=== PATIENT | female | born 1965 | race Caucasian/White ===

== ENCOUNTER 2017-12-04 17:37 | Emergency (ER) | payer MEDICAID ==
[~2017-12-04] VITALS: Ht 157.5 cm; Wt 68.7 kg
[~2017-12-04 17:37] MED LIST: METF500T PO
[2017-12-04 17:48] VITALS: BP 111/53
--- NOTE | 2017-12-04 17:55 | NUR ---
AFTER PROVIDING URINE SAMPLE, PT AMBULATES TO BED, REPORT GIVEN TO MANUEL JOHNSON
[2017-12-04] MEDS ORDERED: NACL 0.9% 1,000 ML IV ONE (18:10)
[2017-12-04] MEDS ORDERED: METOCLOPRAMIDE 10 MG/2 ML INJ VIAL IVP ONE (18:10)
--- NOTE | 2017-12-04 18:10 | NUR ---
PT. CAME INTO THE ED C/O VOMITING AND DIAHRRHEA X 3 DAYS. PT. STATES " ON MONDAY I ATE A BURRITO AND EVER SINCE THEN I STARTED FEELING SICK AND STARTED VOMITING MONDAY NIGHT AND STARTED HAVING DIAHRRHEA TOO, NOW I JUST FEEL WEAK". PT. AAOX 4 , RR EVEN AND UNLABORED, PT. DENIES SOB, DENIES CP, PT. DENIES ANY PAIN AT THIS TIME. PT. SAYS SHE IS DIZZY, NO VISUAL CHANGES AT THIS TIME, PT. SAYS N/V/D X 3 DAYS. ER MD NOTIFIED. DAUGHTER AT BEDSIDE. WILL CONTINUE TO MONITOR. DENIES ANY ALLERGIES TO MED, AND HX OF DM ONLY.
[2017-12-04 18:38] LABS: BASOPHILS % (AUTO) 0.6 % (0.0-2.0); EOSINOPHILS % (AUTO) 0.8 % (0.0-4.0); HEMATOCRIT 38.9 % (36-48); HEMOGLOBIN 13.4 g/dL (12.0-16.0); LYMPHOCYTES # (AUTO) 1.1 K/uL (2.5-16.5); LYMPHOCYTES % (AUTO) 19.7 % (20.5-51.1); MEAN CORPUSCULAR HEMOGLOBIN 30 pg (27-31); MEAN CORPUSCULAR HGB CONC 34 g/dL (33-37); MEAN CORPUSCULAR VOLUME 87.3 fL (80-94); MONOCYTES # (AUTO) 0.5 K/uL (0.8-1.0); MONOCYTES % (AUTO) 8.1 % (1.7-9.3); NEUTROPHILS % (AUTO) 70.8 % (42.2-75.2); PLATELET COUNT (AUTO) 207 K/uL (140-450); RED BLOOD CELL COUNT(AUTO) 4.46 MIL/uL (4.20-5.40); RED CELL DISTRIBUTION WIDTH 12.3 % (11.6-13.7); WHITE BLOOD COUNT (AUTO) 5.6 K/uL (4.8-10.8)
[2017-12-04 18:45] LABS: ANION GAP 12.1 (8-16); CHLORIDE 97 mmol/L (98-107); GFR ARICAN-AMERICAN 75 mL/min (>90); GLUCOSE 327 mg/dL (74-106); POTASSIUM 4.1 mmol/L (3.5-5.1); SODIUM SERUM 132 mmol/L (136-145); UREA NITROGEN, BLOOD 10 mg/dL (7-18)
[2017-12-04 18:51] LABS: ALBUMIN 2.8 g/dL (3.4-5.0); ASPARTATE AMINOTRANSFERASE 13 U/L (15-37); LIPASE 126 U/L (73-393); TOTAL BILIRUBIN 0.4 mg/dL (0.0-1.0)
[2017-12-04 18:57] LABS: ACETONE, SERUM NEGATIVE (NEGATIVE)
--- NOTE | 2017-12-04 19:22 | NUR ---
Pt report given to MANUEL MASTERSON . Transfer of care at this time.
[2017-12-04 20:06] VITALS: BP 111/53
== END 2017-12-04 20:06 | disposition home or self-care (01) ==
LOC: MED 17:37
DX: R11.2 Nausea with vomiting, unspecified (principal); R19.7 Diarrhea, unspecified; E11.65 Type 2 diabetes mellitus with hyperglycemia; Z79.84 Long term (current) use of oral hypoglycemic drugs
CPT/HCPCS: 36415; 71045; 80053; 81002; 81025; 82009; 83690; 84484; 85025; 93005; 96361; 96374; 99285; J2765; J7030; Q0092

== ENCOUNTER 2018-09-03 03:28 | Emergency (ER) | payer MEDICAID ==
[~2018-09-03] VITALS: Ht 154.9 cm; Wt 65.0 kg
[2018-09-03 03:36] VITALS: BP 136/67
--- NOTE | 2018-09-03 03:46 | NUR ---
PT DENIES HITTING ANYTHING SHE PASSED OUT. PT FAMLY STATED SHE JUST FELL TO THE FLOOR. NO BRUISING OR REDNESS ASSESSED. ER MD MADE AWARE OF STATUS.
--- NOTE | 2018-09-03 03:47 | NUR ---
PT AMBULATED TO THE RESTROOM
--- NOTE | 2018-09-03 03:48 | NUR ---
PT AMBULATED TO BED #3
--- NOTE | 2018-09-03 04:07 | NUR ---
PATIENT PRESENTS TO ED WITH PT C/O SYNCOPE EPISODE WHEN SHE COUGHED. COUGH X 1 WEEK. WENT TO PRIMARY CARE AND WAS GIVEN MEDICATION FOR THE COUGH, PROMETHAZINE WITH PHENERGAN. NKA MEDICAL DM PT HAS SOME N/ BUT DENIED VOMITING AND DIARRHEA. NO COUGH WAS ASSSESED IN TRIAGE. DENIES N/V/D; SKIN IS PINK/WARM/DRY; AAOX4 WITH EVEN AND STEADY GAIT; LUNGS CLEAR BL; HR EVEN AND REGULAR; PT DENIES ANY FEVER, CP, SOB, OR COUGH AT THIS TIME; PATIENT STATES PAIN OF 0/10 AT THIS TIME; VSS; PATIENT POSITIONED FOR COMFORT; HOB ELEVATED; BEDRAILS UP X2; BED DOWN. ER MD MADE AWARE OF PT STATUS.
[2018-09-03 05:29] VITALS: BP 144/82
--- NOTE | 2018-09-03 05:29 | NUR ---
Patient discharged with v/s stable. Written and verbal after care instructions given and explained. Patient alert, oriented and verbalized understanding of instructions. Ambulatory with steady gait. All questions addressed prior to discharge. ID band removed. Patient advised to follow up with PMD. Rx of CIPRO AND NORCO AND PREDNISONE. given. Patient educated on indication of medication including possible reaction and side effects. Opportunity to ask questions provided and answered.
== END 2018-09-03 05:29 | disposition home or self-care (01) ==
LOC: MED 03:28
DX: R55 Syncope and collapse (principal); R05 Cough; N39.0 Urinary tract infection, site not specified; M25.569 Pain in unspecified knee; E11.9 Type 2 diabetes mellitus without complications; I10 Essential (primary) hypertension; Z79.84 Long term (current) use of oral hypoglycemic drugs
CPT/HCPCS: 81002; 81025; 99283

== ENCOUNTER 2019-04-10 07:31 | Emergency (ER) | payer MEDICAID ==
[~2019-04-10] VITALS: Ht 160 cm; Wt 81.6 kg
[2019-04-10 07:32] VITALS: BP 164/83
[2019-04-10] MEDS ORDERED: NACL 0.9% 1,000 ML IV ONE (07:55)
[2019-04-10] MEDS ORDERED: hydrALAZINE 20 MG/ML VIAL IVP ONE (07:55)
[2019-04-10] MEDS ORDERED: ONDANSETRON 4 MG/2 ML VIAL IVP ONE (07:55)
[2019-04-10] MEDS ORDERED: INSULIN REGULAR, HUMAN 100 UNIT/ML VIAL SUBQ ONE (07:55)
[2019-04-10 08:47] LABS: BASOPHILS % (AUTO) 0.5 % (0.0-2.0); EOSINOPHILS # (AUTO) 0.1 K/uL (0-0.4); EOSINOPHILS % (AUTO) 1.1 % (0.0-4.0); HEMATOCRIT 36.5 % (36-48); HEMOGLOBIN 12.5 g/dL (12.0-16.0); LYMPHOCYTES # (AUTO) 1.6 K/uL (2.5-16.5); LYMPHOCYTES % (AUTO) 20.8 % (20.5-51.1); MEAN CORPUSCULAR HEMOGLOBIN 31 pg (27-31); MEAN CORPUSCULAR HGB CONC 34 g/dL (33-37); MEAN CORPUSCULAR VOLUME 89.2 fL (80-94); MONOCYTES # (AUTO) 0.5 K/uL (0.8-1.0); MONOCYTES % (AUTO) 6.3 % (1.7-9.3); NEUTROPHILS # (AUTO) 5.6 K/uL (1.8-7.7); NEUTROPHILS % (AUTO) 71.3 % (42.2-75.2); PLATELET COUNT (AUTO) 267 K/uL (140-450); RED CELL DISTRIBUTION WIDTH 12.4 % (11.6-13.7); WHITE BLOOD COUNT (AUTO) 7.9 K/uL (4.8-10.8)
[2019-04-10 09:52] LABS: POTASSIUM 4.4 mmol/L (3.5-5.1)
[2019-04-10 09:53] LABS: ANION GAP 14.4 (8-16)
[2019-04-10 09:54] LABS: TOTAL BILIRUBIN 0.4 mg/dL (0.0-1.0)
[2019-04-10 09:55] LABS: ALBUMIN 3.2 g/dL (3.4-5.0)
[2019-04-10 10:20] VITALS: BP 133/79
== END 2019-04-10 10:19 | disposition home or self-care (01) ==
LOC: MED 07:31
DX: R11.2 Nausea with vomiting, unspecified (principal); E11.65 Type 2 diabetes mellitus with hyperglycemia; I10 Essential (primary) hypertension; Z79.84 Long term (current) use of oral hypoglycemic drugs
CPT/HCPCS: 36415; 80053; 85025; 96361; 96372; 96374; 96375; 99283; J0360; J1815; J2405; J7030

== ENCOUNTER 2019-07-19 09:55 | Emergency (ER) | payer MEDICAID ==
[~2019-07-19] VITALS: Ht 152.4 cm; Wt 67.6 kg
[2019-07-19 10:00] VITALS: BP 137/67
--- NOTE | 2019-07-19 10:03 | NUR ---
PT AMBULATED TO ED BED 03
--- NOTE | 2019-07-19 10:07 | NUR ---
54/F BIB DAUGHTER C/O NAUSEA , DIZZINESS AND GENERALIZED WEAKNESS X 2 DAYS. NORMAL BM YESTERDAY. PMH; DM, HIGH CHOLESTEROL. PATIENT STATES PAIN OF 0/10 AT THIS TIME. PATIENT POSITIONED FOR COMFORT; HOB ELEVATED; BEDRAILS UP X1; BED DOWN. ER MD MADE AWARE OF PT STATUS.
[2019-07-19] MEDS ORDERED: NACL 0.9% 500 ML IV ONE (10:25)
[2019-07-19] MEDS ORDERED: ONDANSETRON 4 MG/2 ML VIAL IVP ONE (10:25)
--- NOTE | 2019-07-19 10:41 | NUR ---
ekg at bedside.
[2019-07-19 11:12] LABS: BASOPHILS # (AUTO) 0.1 K/uL (0.00-0.22); BASOPHILS % (AUTO) 0.8 % (0.0-2.0); EOSINOPHILS # (AUTO) 0.1 K/uL (0-0.4); EOSINOPHILS % (AUTO) 1.8 % (0.0-4.0); HEMATOCRIT 38.1 % (36-48); LYMPHOCYTES # (AUTO) 2.1 K/uL (2.5-16.5); LYMPHOCYTES % (AUTO) 31.3 % (20.5-51.1); MEAN CORPUSCULAR HEMOGLOBIN 31 pg (27-31); MEAN CORPUSCULAR HGB CONC 34 g/dL (33-37); MEAN CORPUSCULAR VOLUME 89.8 fL (80-94); MONOCYTES # (AUTO) 0.4 K/uL (0.8-1.0); MONOCYTES % (AUTO) 5.8 % (1.7-9.3); NEUTROPHILS # (AUTO) 4.1 K/uL (1.8-7.7); NEUTROPHILS % (AUTO) 60.3 % (42.2-75.2); PLATELET COUNT (AUTO) 279 K/uL (140-450); RED BLOOD CELL COUNT(AUTO) 4.24 MIL/uL (4.20-5.40); RED CELL DISTRIBUTION WIDTH 12.4 % (11.6-13.7); WHITE BLOOD COUNT (AUTO) 6.8 K/uL (4.8-10.8)
[2019-07-19 12:05] LABS: ANION GAP 12.1 (8-16); CARBON DIOXIDE 28.3 mmol/L (21-32); CREATININE 0.9 mg/dL (0.6-1.3); POTASSIUM 4.4 mmol/L (3.5-5.1); TOTAL BILIRUBIN 0.3 mg/dL (0.0-1.0)
[2019-07-19 12:06] LABS: ALBUMIN 3.4 g/dL (3.4-5.0)
[2019-07-19 12:27] VITALS: BP 174/96
--- NOTE | 2019-07-19 12:27 | NUR ---
Patient discharged with v/s stable. Written and verbal after care instructions given and explained. Patient alert, oriented and verbalized understanding of instructions. Ambulatory with steady gait. All questions addressed prior to discharge. ID band removed. Patient advised to follow up with PMD. Rx of zofran odt given. Patient educated on indication of medication including possible reaction and side effects. Opportunity to ask questions provided and answered.
== END 2019-07-19 12:27 | disposition home or self-care (01) ==
LOC: MED 09:55
DX: E11.43 Type 2 diabetes mellitus with diabetic autonomic (poly)neuropathy (principal); K31.84 Gastroparesis; I10 Essential (primary) hypertension; E78.00 Pure hypercholesterolemia, unspecified; Z79.4 Long term (current) use of insulin; Z79.84 Long term (current) use of oral hypoglycemic drugs
CPT/HCPCS: 36415; 80053; 83690; 84484; 85025; 93005; 96374; 99284; J2405; J7030

== ENCOUNTER 2020-01-19 20:44 | Emergency (ER) | payer MEDICAID ==
[~2020-01-19] VITALS: Ht 152.4 cm; Wt 68.5 kg
[2020-01-19 21:12] VITALS: BP 178/88
--- NOTE | 2020-01-19 21:18 | NUR ---
AMBULATED TO ER BED 4
--- NOTE | 2020-01-19 21:21 | NUR ---
54Y F BIB SELF FOR C/C OF 8/10 LEFT ECHEVERRIA AND PINKY TOE PAIN X1 WEEK. PT STATES SHE HIT HER LEG AND FOOT ON SOMETHING AND HER PAIN HAS INCREASED SINCE. PINKY TOE IS EDEMATOUS WITH A SMALL SKIN TEAR. NO BRUSING NOTED. DENIES TAKING ANY OTC MEDS FOR PAIN. BED LOCKED AND IN LOWEST POSITION. MED HX: DM2 RX: METFORMIN NKA
--- NOTE | 2020-01-19 21:46 | NUR ---
ERMD AT BEDSIDE
[2020-01-19] MEDS ORDERED: ACETAMINOPHEN EXTRA STRENGTH 500 MG TAB PO ONE (21:50)
[2020-01-19] MEDS ORDERED: LIDOCAINE/EPI 1% 1:100000 20 ML VIAL INJ ONE (21:55)
[2020-01-19] MEDS ORDERED: ACETAMINOPHEN 325 MG TAB PO ONE (22:05)
[2020-01-19] MEDS ORDERED: BACITRACIN OINT 500 UNITS/GM PKT TP ONE (23:24)
--- NOTE | 2020-01-19 23:25 | NUR ---
PULLED BACITRACIN FROM PYXIS PER ERMNila VERBAL ORDER
[2020-01-19 23:33] VITALS: BP 172/86
[2020-01-21] MEDS ORDERED: METF500T PO (19:08)
[2020-01-21] MEDS ORDERED: LISI-420 PO (22:51)
[2020-01-21] MEDS ORDERED: OMEP20TC12 PO (22:51)
[2020-01-28] MEDS ORDERED: METF500T PO (13:44)
[2020-01-28] MEDS ORDERED: GLIP5TAB4 PO (13:44)
[2020-01-28] MEDS ORDERED: [UNRECOGNIZED DRUG - OTHER] IV (13:47)
[2020-01-28] MEDS ORDERED: MERO1VIA15 IV (13:47)
== END 2020-01-19 23:33 | disposition home or self-care (01) ==
LOC: MED 20:44
DX: S99.922A Unspecified injury of left foot, initial encounter (principal); L02.612 Cutaneous abscess of left foot; E11.9 Type 2 diabetes mellitus without complications; I10 Essential (primary) hypertension; Z79.899 Other long term (current) drug therapy; W22.01XA Walked into wall, initial encounter; Y93.89 Activity, other specified; Y92.89 Other specified places as the place of occurrence of the external cause; Y99.8 Other external cause status
CPT/HCPCS: 73590; 73660; 99284; J2001

== ENCOUNTER 2021-10-10 20:38 | Emergency (ER) | payer MEDICAID ==
[~2021-10-10] VITALS: Ht 157.5 cm; Wt 81.6 kg
[~2021-10-10 20:38] MED LIST changes: +GLIP5TAB14 PO; +GLU500 PO; +LISI-487 PO; +MERO1VIA15 IV; +OMEP-278 PO; +TYLENOL; +[UNRECOGNIZED DRUG - OTHER] IV
[2021-10-10 20:45] VITALS: BP 111/82
--- NOTE | 2021-10-10 20:48 | NUR ---
to lobby a/w bed ambulatory
--- NOTE | 2021-10-10 21:10 | NUR ---
seen and examined by MARAL
--- NOTE | 2021-10-10 22:00 | NUR ---
PT AMBULATED TO BED #1
--- NOTE | 2021-10-10 22:03 | NUR ---
56 YO/F BIB SELF W C/O NAUSEA IN THE MORNING THAT RESOLVED BUT NOT HAS ALOT OF CHILLS AND COUGH. PT DENIES ANY EPISODES OF VOMIT. DENIES ANY SOB, DIZZINESS, FEVERS, N/V/D/C OR ANY PAIN. PT SITTING IN BED LOCKED IN LOWEST POSITION W X1 SIDERAIL UP . BREATHING EVEN AND UNLABORED. PMH: DIABETES, HIGH CHOL, HTN ALLERGIES: DENIES
--- NOTE | 2021-10-10 22:12 | NUR ---
PT AMBULATED TO BATHROOM W STEADY GAIT.
[2021-10-10 22:30] LABS: BASOPHILS # (AUTO) 0.1 K/uL (0.00-0.22); BASOPHILS % (AUTO) 0.8 % (0.0-2.0); EOSINOPHILS # (AUTO) 0.2 K/uL (0-0.4); EOSINOPHILS % (AUTO) 2.6 % (0.0-4.0); HEMATOCRIT 30.4 % (36-48); HEMOGLOBIN 10.4 g/dL (12.0-16.0); LYMPHOCYTES # (AUTO) 1.3 K/uL (2.5-16.5); LYMPHOCYTES % (AUTO) 14.5 % (20.5-51.1); MEAN CORPUSCULAR HEMOGLOBIN 29 pg (27-31); MEAN CORPUSCULAR HGB CONC 34 g/dL (33-37); MEAN CORPUSCULAR VOLUME 85.3 fL (80-94); MONOCYTES # (AUTO) 0.9 K/uL (0.8-1.0); MONOCYTES % (AUTO) 9.6 % (1.7-9.3); NEUTROPHILS # (AUTO) 6.5 K/uL (1.8-7.7); NEUTROPHILS % (AUTO) 72.5 % (42.2-75.2); PLATELET COUNT (AUTO) 361 K/uL (140-450); RED BLOOD CELL COUNT(AUTO) 3.56 MIL/uL (4.20-5.40); RED CELL DISTRIBUTION WIDTH 12.5 % (11.6-13.7); WHITE BLOOD COUNT (AUTO) 8.9 K/uL (4.8-10.8)
[2021-10-10 22:33] LABS: APPEARANCE,URINE CLEAR (CLEAR); BILIRUBIN,URINE NEGATIVE (NEGATIVE); BLOOD, URINE TRACE-I (NEGATIVE); COLOR,URINE YELLOW (YELLOW); LEUKOCYTE ESTERASE ,URINE 2+ (NEGATIVE); NITRITE, URINE POSITIVE (NEGATIVE); PH,URINE 7.5 (5.0-9.0); UGLUCOSE 2+ (NEGATIVE)
[2021-10-10 22:46] LABS: ALBUMIN 2.6 g/dL (3.4-5.0); ANION GAP 9.1 (8-16); CREATININE 1.4 mg/dL (0.6-1.3); POTASSIUM 4.1 mmol/L (3.5-5.1); TOTAL BILIRUBIN 0.2 mg/dL (0.0-1.0)
[2021-10-10 22:47] LABS: RBC,URINE 0-5 /HPF (0-5); WBC,URINE 16-25 (MOD) /HPF (0-5)
--- NOTE | 2021-10-10 23:41 | NUR ---
PT LAYING IN BED IN R LATERAL POSIITON. PT DENIES ANY PAIN, NAUSEA OR OTHER SYMPTOMS. PT REPORTS CHILLS HAVE RESOLVED. BREATHING EVEN AND UNLABORED. WILL CONTINUE TO MONITOR.
[2021-10-11] MEDS ORDERED: ONDA-188 PO (00:44)
[2021-10-11] MEDS ORDERED: NITR100C7 PO (00:44)
[2021-10-11 01:00] VITALS: BP 119/53
--- NOTE | 2021-10-11 01:00 | NUR ---
Patient discharged with v/s stable. Written and verbal after care instructions given and explained. Patient alert, oriented and verbalized understanding of instructions. Ambulatory with steady gait. All questions addressed prior to discharge. ID band removed. Patient advised to follow up with PMD. Rx of ZOFRAN, MACROBID given. Patient educated on indication of medication including possible reaction and side effects. Opportunity to ask questions provided and answered.
== END 2021-10-11 01:00 | disposition home or self-care (01) ==
LOC: MED 20:38
DX: N39.0 Urinary tract infection, site not specified (principal); R11.0 Nausea; E11.9 Type 2 diabetes mellitus without complications; I10 Essential (primary) hypertension; Z79.899 Other long term (current) drug therapy; Z98.890 Other specified postprocedural states; Z79.84 Long term (current) use of oral hypoglycemic drugs
CPT/HCPCS: 36415; 80053; 81001; 83690; 85025; 87086; 99283

== ENCOUNTER 2022-04-16 09:03 | Inpatient (IN) | payer MEDICAID ==
[~2022-04-16] VITALS: Ht 160 cm; Wt 66.2 kg
[~2022-04-16 09:03] MED LIST changes: +METF-346 PO; -METF500T PO; +NITR100C7 PO; +ONDA-188 PO
[2022-04-16 09:14] VITALS: BP 119/64
--- NOTE | 2022-04-16 09:22 | NUR ---
PT AMB TO BED 12.
[2022-04-16] MEDS ORDERED: NACL 0.9% 1,000 ML IV ONE (10:00)
[2022-04-16] MEDS ORDERED: ONDANSETRON 4 MG/2 ML VIAL IVP ONE (10:00)
--- NOTE | 2022-04-16 10:12 | NUR ---
PT C/O ABDOMINAL AND CHEST PAIN WITH N/V 5 DAYS. IV INSERTED TO RIGHT AC #20GUAGE MEDICATED PER ORDER.
[2022-04-16 11:13] LABS: BASOPHILS % (AUTO) 0.4 % (0.0-2.0); EOSINOPHILS % (AUTO) 0.3 % (0.0-4.0); HEMATOCRIT 30.3 % (36-48); HEMOGLOBIN 10.4 g/dL (12.0-16.0); LYMPHOCYTES % (AUTO) 9.1 % (20.5-51.1); MEAN CORPUSCULAR HEMOGLOBIN 29 pg (27-31); MEAN CORPUSCULAR HGB CONC 34 g/dL (33-37); MEAN CORPUSCULAR VOLUME 85.7 fL (80-94); MONOCYTES # (AUTO) 0.9 K/uL (0.8-1.0); MONOCYTES % (AUTO) 8.4 % (1.7-9.3); NEUTROPHILS # (AUTO) 8.6 K/uL (1.8-7.7); NEUTROPHILS % (AUTO) 81.8 % (42.2-75.2); PLATELET COUNT (AUTO) 340 K/uL (140-450); RED BLOOD CELL COUNT(AUTO) 3.53 MIL/uL (4.20-5.40); RED CELL DISTRIBUTION WIDTH 12.4 % (11.6-13.7); WHITE BLOOD COUNT (AUTO) 10.6 K/uL (4.8-10.8)
[2022-04-16 11:18] LABS: ALBUMIN 2.3 g/dL (3.4-5.0); ANION GAP 12.8 (8-16); CARBON DIOXIDE 24.8 mmol/L (21-32); CREATININE 1.4 mg/dL (0.6-1.3); POTASSIUM 4.6 mmol/L (3.5-5.1); TOTAL BILIRUBIN 0.3 mg/dL (0.0-1.0)
[2022-04-16] MEDS ORDERED: NACL 0.9% 500 ML IV ONE (13:35)
[2022-04-16] MEDS ORDERED: ACETAMINOPHEN 325 MG TAB PO ONE (13:35)
--- NOTE | 2022-04-16 13:52 | NUR ---
taken to ct via maggi
[2022-04-16 15:18] LABS: APPEARANCE,URINE CLEAR (CLEAR); BILIRUBIN,URINE NEGATIVE (NEGATIVE); BLOOD, URINE 2+ (NEGATIVE); COLOR,URINE YELLOW (YELLOW); LEUKOCYTE ESTERASE ,URINE 2+ (NEGATIVE); NITRITE, URINE NEGATIVE (NEGATIVE); UGLUCOSE TRACE (NEGATIVE)
[2022-04-16 15:52] LABS: WBC,URINE 16-25 (MOD) /HPF (0-5); YEAST,URINE None Seen /HPF (None Seen)
[2022-04-16 15:53] LABS: TRICHOMONAS,URINE None Seen /HPF (None Seen)
[2022-04-16] MEDS ORDERED: cefTRIAXone 2,000 MG in DEXTROSE 5% 100 ML IV ONE (16:00)
[2022-04-16] MEDS ORDERED: cefTRIAXone 2,000 MG VIAL ONE (16:13)
[2022-04-16] MEDS ORDERED: LORazepam 2 MG/ML VIAL IVP PRN (17:50)
[2022-04-16] MEDS ORDERED: POTASSIUM CHLORIDE 10 MEQ TABER PO PRN (17:50)
[2022-04-16] MEDS ORDERED: DOCUSATE SODIUM 100 MG GELCAP PO PRN (17:50)
[2022-04-16] MEDS ORDERED: DEXTROSE 50% 50 ML SYR IVP PRN (17:50)
[2022-04-16] MEDS ORDERED: ZOLPIDEM 10 MG TAB PO PRN (17:50)
[2022-04-16] MEDS ORDERED: MORPHINE SULFATE 2 MG/ML SYR IVP PRN (17:50)
[2022-04-16] MEDS ORDERED: MAG SULF 2000 MG/WATER PREMIX 50 ML IV PRN (17:50)
[2022-04-16] MEDS ORDERED: ACETAMINOPHEN 325 MG TAB PO PRN (17:50)
--- NOTE | 2022-04-16 17:50 | NUR ---
MOVED TO ER BED 4
[2022-04-16] MEDS: NACL 0.9% 1,000 ML IV SCH (18:06)
--- NOTE | 2022-04-16 20:00 | NUR ---
ASSUMED PT CARE AT THIS TIME. PT A&O X4 AND IS POLISH SPEAKING. PT IS AMBULATORY. BREATHING EVEN AND UNLABORED. SR TO BEDSIDE MONITOR. PERIPHERAL IV ACCESS TO RIGHT HAND WITH NS INFUSING. NO C/O AT THIS TIME.
[2022-04-16] MEDS: BLOOD GLUCOSE MONITORING 1 DEV DEV FS SCH (21:33)
--- NOTE | 2022-04-16 22:30 | NUR ---
ASSISTED PT TO RESTROOM TO URINATE.
--- NOTE | 2022-04-17 00:30 | NUR ---
PT RESTING. DENIES PAIN.
[2022-04-17] MEDS: NACL 0.9% 1,000 ML IV SCH ×2 (03:50→14:59)
--- NOTE | 2022-04-17 07:23 | NUR ---
REPORT GIVEN TO AM SHIFT MANUEL SANCHEZ.
--- NOTE | 2022-04-17 07:28 | NUR ---
Report recieved from MANUEL Arias for transfer of care.
--- NOTE | 2022-04-17 08:46 | NUR ---
Patient was offered breakfast tray, patient is sitting up eating breakfast.
[2022-04-17] MEDS: BLOOD GLUCOSE MONITORING 1 DEV DEV FS SCH ×4 (08:55→21:02)
[2022-04-17 08:56] LABS: ANION GAP 11.2 (8-16); CARBON DIOXIDE 26.4 mmol/L (21-32); CREATININE 1.2 mg/dL (0.6-1.3); POTASSIUM 4.6 mmol/L (3.5-5.1)
[2022-04-17 09:06] LABS: BASOPHILS % (AUTO) 0.4 % (0.0-2.0); EOSINOPHILS % (AUTO) 0.4 % (0.0-4.0); HEMATOCRIT 28.7 % (36-48); HEMOGLOBIN 9.8 g/dL (12.0-16.0); LYMPHOCYTES # (AUTO) 0.7 K/uL (2.5-16.5); LYMPHOCYTES % (AUTO) 9.2 % (20.5-51.1); MEAN CORPUSCULAR HEMOGLOBIN 29 pg (27-31); MEAN CORPUSCULAR HGB CONC 34 g/dL (33-37); MEAN CORPUSCULAR VOLUME 85.6 fL (80-94); MONOCYTES # (AUTO) 0.7 K/uL (0.8-1.0); MONOCYTES % (AUTO) 8.4 % (1.7-9.3); NEUTROPHILS # (AUTO) 6.5 K/uL (1.8-7.7); NEUTROPHILS % (AUTO) 81.6 % (42.2-75.2); PLATELET COUNT (AUTO) 361 K/uL (140-450); RED BLOOD CELL COUNT(AUTO) 3.36 MIL/uL (4.20-5.40); RED CELL DISTRIBUTION WIDTH 12.5 % (11.6-13.7)
[2022-04-17] MEDS ORDERED: cefTRIAXone 1,000 MG VIAL ONE (09:33)
[2022-04-17] MEDS: ONDANSETRON 4 MG/2 ML VIAL IVP PRN (10:10)
--- NOTE | 2022-04-17 10:48 | NUR ---
Patient is resting on bed, respirations even and unlabored. All needs met by staff.
--- NOTE | 2022-04-17 12:05 | NUR ---
Patient was offered her lunch tray. Patient was sitting up eating lunch.
[2022-04-17] MEDS: INSULIN LISPRO SLIDING SCALE 100 UNITS/ML VIAL SUBQ PRN ×3 (12:09→21:09)
--- NOTE | 2022-04-17 14:28 | NUR ---
Patient is sitting in bed, respirations even and unlabored. Patient is using her cellphone. All needs meet by staff.
--- NOTE | 2022-04-17 16:15 | NUR ---
Patient is alert and verbally responsive. Patient is laying in bed, respirations even and unlabored. All needs met by staff.
--- NOTE | 2022-04-17 18:20 | NUR ---
Patient was offered her dinner tray.
--- NOTE | 2022-04-17 18:24 | NUR ---
Patient ambulated to restroom with cane.
--- NOTE | 2022-04-17 19:18 | NUR ---
Report given to AGAPITO Miguel for transfer of care.
--- NOTE | 2022-04-17 21:49 | NUR ---
57YR OLD FEMALE C/O CP AND ABD PAIN. PT IS A MEDSURG HOLD ADMISSION. DX OF PYELONEPHRITIS. PT STATES ONLY PAIN WHEN WALKING OR ANY OTHER MOVEMENT . ON BEDSIDE ETL TESTER. PT IS A&OX4 KITTITIAN SPEAKING ONLY. GAIT STEADY, USES A CANE. RESP EVEN AND UNLABORED. SKIN WARM DRY AND INTACT. HOB ELEVATED BED AT LOWEST POSITION. NKDA DM
--- NOTE | 2022-04-17 23:14 | NUR ---
PT RESTING RESP EVEN AND UNLABORED. HAS BEEN AMBULATORY TO BATHROOM WITH ASSIST. PENDING BED STATUS FOR [facility].
[2022-04-18] MEDS: NACL 0.9% 1,000 ML IV SCH ×3 (00:12→16:53)
--- NOTE | 2022-04-18 00:51 | NUR ---
Assisted patient to restroom.
--- NOTE | 2022-04-18 01:54 | NUR ---
PT ASLEEP RESP EVEN AND UNLABORED. HOB ELEVATED SIDE RAILS UPX1. 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 BED AT LOWEST POSITION.
[2022-04-18 05:33] LABS: BASOPHILS % (AUTO) 0.5 % (0.0-2.0); EOSINOPHILS # (AUTO) 0.1 K/uL (0-0.4); HEMATOCRIT 27.9 % (36-48); HEMOGLOBIN 9.5 g/dL (12.0-16.0); LYMPHOCYTES % (AUTO) 12.9 % (20.5-51.1); MEAN CORPUSCULAR HEMOGLOBIN 29 pg (27-31); MEAN CORPUSCULAR HGB CONC 34 g/dL (33-37); MONOCYTES # (AUTO) 0.8 K/uL (0.8-1.0); MONOCYTES % (AUTO) 10.1 % (1.7-9.3); NEUTROPHILS # (AUTO) 5.7 K/uL (1.8-7.7); NEUTROPHILS % (AUTO) 75.5 % (42.2-75.2); PLATELET COUNT (AUTO) 346 K/uL (140-450); RED BLOOD CELL COUNT(AUTO) 3.24 MIL/uL (4.20-5.40); RED CELL DISTRIBUTION WIDTH 12.8 % (11.6-13.7); WHITE BLOOD COUNT (AUTO) 7.6 K/uL (4.8-10.8)
[2022-04-18 05:50] LABS: ANION GAP 13.1 (8-16); CARBON DIOXIDE 24.5 mmol/L (21-32); CREATININE 1.3 mg/dL (0.6-1.3); POTASSIUM 4.6 mmol/L (3.5-5.1)
--- NOTE | 2022-04-18 07:22 | NUR ---
REPORT GIVEN TO FINA ALTMAN. TRANSFER OF CARE AT THIS TIME
--- NOTE | 2022-04-18 07:23 | NUR ---
REPORT RECEIVED FROM CRAIG ALTMAN. ASSUMED CARE AT THIS TIME
--- NOTE | 2022-04-18 07:30 | NUR ---
pt at rest w/ eyes closed. respirations even and unlabored. c/o mild nausea, denies chest pain at this time.
[2022-04-18] MEDS: BLOOD GLUCOSE MONITORING 1 DEV DEV FS SCH ×4 (07:45→21:50)
[2022-04-18] MEDS: INSULIN LISPRO SLIDING SCALE 100 UNITS/ML VIAL SUBQ PRN ×4 (07:46→21:59)
[2022-04-18] MEDS: ONDANSETRON 4 MG/2 ML VIAL IVP PRN (07:48)
--- NOTE | 2022-04-18 07:53 | NUR ---
Patient will be admitted to care of MD EPPERSON . Admited to [facility]. Will go to room 118. Belongings list completed. Report to BOOGIE JACKSON.
--- NOTE | 2022-04-18 07:54 | NUR ---
Chart checked and completed. The patient's care was reviewed and supervised by Nadia Patiño RN.
--- NOTE | 2022-04-18 10:00 | NUR ---
RECEIVED FROM ED ADMITTE ASSESSMENT COMPLETE PLAN OF CARE REVIEWED INTERPRETOR [phone] USED FOR TRANSLATION NO COMPLAINTS OF PAIN AT THIS TIME ORIENTED TO ROOM AND PLAN OF CARE
--- NOTE | 2022-04-18 11:05 | NUR ---
PATIENT HAS BEEN SCREENED AND CATEGORIZED MODERATE NUTRITION RISK. PATIENT WILL BE SEEN WITHIN 3-5 DAYS OF ADMISSION. 04/16/22-04/21/[address] REVIEWED BY K[address]IS TOL[address] RD
[2022-04-18 12:00] VITALS: BP 125/82
--- NOTE | 2022-04-18 13:30 | NUR ---
DC PLANNING PATIENT IS PRIMARILY L[place] SPEAKING, THEREFORE NEWS CLERK SERVICE WAS USED, NEWS CLERK ID [id number]. SW MET WITH PATIENT AT BEDSIDE TO COMPLETE ASSESSMENT. PATIENT REPORTS RESIDING IN A SINGLE STORY HOME WITH HER FAMILY AT THE ADDRESS LISTED ON FILE. PATIENT IDENTIFIED FLORIN GOMEZ, DAUGHTER, AND LOY QUESADA, PARTNER, EMERGENCY CONTACTS. PATIENT DENIED HAVING AD IN PLACE AND DECLINED AD OFFERED BY SW. PATIENT REPORTS MEETING WITH PCP, NEEDED, LAST VISIT; 1-2 MONTHS AGO. PATIENT REPORTS BEING NON COMPLIANT MEDICATION AND REPORTS THAT SHE OFTEN BREAKS DOWN OR DECREASES THE AMOUNT PRESCRIBED SHE FEELS ILL IF TAKING THE PRESCRIBED DOSE. SW ENCOURAGED PATIENT TO SPEAK TO PCP. PATIENT ACKNOWLEDGED AND AGREED. 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 PATIENT REPORTS RECEIVING MEDICATION FROM [facility] [address] IN [place], WHEN NEEDED. PATIENT REPORTS BEING AMBULATORY WITH DME ASSISTANCE; CANE, GLUCOMETER. PATIENT COMPLETES ADL'S INDEPENDENTLY. PATIENT REPORTS HX OF DIABETES AND REPORTS THAT DIABETES IS WELL MANAGED. PATIENT DENIED MH/SA HX. PATIENT DEPORTS DC PLAN IS TO RETURN HOME WITH FAMILY PROVIDING TRANSPORTATION WHEN MEDICALLY STABLE. SW INQUIRED ON RESOURCES NEEDED, PATIENT DECLINED. PT DENIES HX OF DIALYSIS, HOME HEALTH, SNF PLACEMENT.
[2022-04-18 16:00] VITALS: BP 133/79
--- NOTE | 2022-04-18 17:30 | NUR ---
PT POSITIVE FOR MDRO ECOLI ESBL OF URINE MD EPPERSON MADE AWARE WITH NEW ORDER TO START MERAM 1GM Q 8 HOUR DC ROCEPHIN AND CONSULT DR PEÑA NOTIFIED VIA TEXT NO DISTRESS NOTED PT PLACED IN ISOLATION
--- NOTE | 2022-04-18 19:35 | NUR ---
RECEIVED ENDORSEMENT FROM DAY SHIFT NURSE FOR CONTINUITY OF CARE. PT IS ON BED ASLEEP. IV SALINE LOCK ON RIGHT HAND INTACT AND PATENT, INFUSING NORMAL SALINE AT 100ML/HR. NO SIGN/SYMPTOM OF INFECTION ON IV SITE. CONTINUE MONITORING.
[2022-04-18 20:00] VITALS: BP 133/79
[2022-04-18] MEDS: MEROPENEM 1,000 MG in NACL 0.9% 50 ML IV SCH (21:41)
--- NOTE | 2022-04-18 21:50 | NUR ---
BLOOD SUGAR CHECK = 247.
--- NOTE | 2022-04-18 21:50 | NUR ---
ADMINISTERED 4 HUMOLOG INSULIN FOR BLOOD SUGAR 247, PER SLIDING SCALE.
[2022-04-19 04:00] VITALS: BP 140/56
[2022-04-19] MEDS: NACL 0.9% 1,000 ML IV SCH ×2 (05:50→16:07)
[2022-04-19] MEDS: BLOOD GLUCOSE MONITORING 1 DEV DEV FS SCH ×4 (06:44→21:57)
[2022-04-19] MEDS: INSULIN LISPRO SLIDING SCALE 100 UNITS/ML VIAL SUBQ PRN ×2 (06:45→12:01)
--- NOTE | 2022-04-19 06:45 | NUR ---
BLOOD SUGAR CHECK = 156, 2 UNITS HUMOLOG INSULIN ADMINISTERED PER SLIDING SCALE, PT TOLERATES WELL.
[2022-04-19 07:05] LABS: ANION GAP 10.6 (8-16); CARBON DIOXIDE 25.1 mmol/L (21-32); CREATININE 1.1 mg/dL (0.6-1.3); POTASSIUM 4.7 mmol/L (3.5-5.1)
[2022-04-19 07:08] LABS: BASOPHILS # (AUTO) 0.1 K/uL (0.00-0.22); BASOPHILS % (AUTO) 0.7 % (0.0-2.0); EOSINOPHILS # (AUTO) 0.2 K/uL (0-0.4); HEMATOCRIT 26.2 % (36-48); HEMOGLOBIN 9.1 g/dL (12.0-16.0); LYMPHOCYTES # (AUTO) 1.5 K/uL (2.5-16.5); MEAN CORPUSCULAR HEMOGLOBIN 30 pg (27-31); MEAN CORPUSCULAR HGB CONC 35 g/dL (33-37); MONOCYTES # (AUTO) 0.9 K/uL (0.8-1.0); MONOCYTES % (AUTO) 11.6 % (1.7-9.3); NEUTROPHILS % (AUTO) 65.7 % (42.2-75.2); PLATELET COUNT (AUTO) 334 K/uL (140-450); RED BLOOD CELL COUNT(AUTO) 3.08 MIL/uL (4.20-5.40); RED CELL DISTRIBUTION WIDTH 12.6 % (11.6-13.7); WHITE BLOOD COUNT (AUTO) 7.6 K/uL (4.8-10.8)
--- NOTE | 2022-04-19 07:20 | NUR ---
PT IS ASLEEP AND ON STABLE CONDITION. ALL SAFETY MEASURES ARE IN PLACE. ENDORSED TO DAY SHIFT NURSE FOR CONTINUITY OF CARE.
--- NOTE | 2022-04-19 07:20 | NUR ---
RECEIVED REPORT FROM NIGHTSHIFT NURSE KISHORE FOR CONTINUITY OF CARE. PT IS CURRENTLY SLEEPING, A/OX4 AND KHMER SPEAKING. PT IS BREATHING EVEN, REGULAR AND UNLABORED ON ROOM AIR. PT IS CONTINENT OF THE BOWELS AND BLADDER, ANS IS ABLE TO AMBULATE WITHOUT ASSISTANCE. PT SKIN INTACT, CURRENTLY DENIES ANY PAIN AT THIS TIME. PT IN STABLE CONDITION.
--- NOTE | 2022-04-19 09:50 | NUR ---
PT VISUALLY ASSESSED. PT DENIES PAIN OR DISTRESS AT THIS TIME.
[2022-04-19] MEDS: MEROPENEM 1,000 MG in NACL 0.9% 50 ML IV SCH ×2 (10:01→21:58)
[2022-04-19] MEDS ORDERED: guaiFENesin DM 200/20 MG-10 ML 10 ML UDC PO PRN (10:15)
--- NOTE | 2022-04-19 11:35 | NUR ---
PT VISUALLY ASSESSED. PT DENIES PAIN OR DISTRESS AT THIS TIME.
[2022-04-19] MEDS: glipiZIDE 5 MG TAB PO SCH ×2 (11:55→16:50)
[2022-04-19 12:00] VITALS: BP 134/69
--- NOTE | 2022-04-19 13:00 | NUR ---
PT VISUALLY ASSESSED. PT DENIES PAIN OR DISTRESS AT THIS TIME.
--- NOTE | 2022-04-19 15:00 | NUR ---
PT VISUALLY ASSESSED. PT DENIES PAIN OR DISTRESS AT THIS TIME.
--- NOTE | 2022-04-19 15:52 | NUR ---
DC PLANNIN YRS OLD FEMALE PATIENT WAS ADMITTED FROM HOME WITH A DX OF PYELONEPHRITIS. PATIENT HAS A HX OF HTN AND DM. CXR SHOWED NORMAL. CT SHESST NEGATIVE. RAPID COVID TEST NEGATIVE. ADMINISTERED IVF, IV ABX ROCEPHIN. URINE CULTURE SHOWED MDRO AND ESBL. CONSULTED DR PEÑA. DC PLAN TO GO HOME WHEN STABLE. CM TO FOLLOW. Addendum: 04/20/22 at 1535 by Alice Osorio RN DC PLANNING: PATIENT HAS A DC ORDER TO RECEIVE ERTAPENEM 1GM DAILY FOR 4 DAYS UNTIL 04/24/22 FAXED TO [facility] SPOKE WITH KATHRYN MONTOYA STATED TO FAX IT TO [facility] CALLED [facility] [phone] SPOKE WITH ELVIRA BOYLE STATED MEDICATION WILL BE DELIVERED TOMORROW MORNING AND WILL SEND A NURSE TO ADMINISTER THE MEDS. NOTIFIED PATIENT AND ROMAIN BLACKWELL CM TO FOLLOW
--- NOTE | 2022-04-19 17:01 | NUR ---
PT VISUALLY ASSESSED. PT DENIES PAIN OR DISTRESS AT THIS TIME.
--- NOTE | 2022-04-19 19:09 | NUR ---
RECEIVED ENDORSEMENT FROM DAY SHIFT NURSE ANTON FOR CONTINUITY OF PT CARE. PT IS SET[place] SPEAKING, LYING DOWN ON BED, AWAKE, ALERT AND ORIENTED X 4. IV SALINE LOCK ON RIGHT HAND INTACT AND PATENT, INFUSING NORMAL SALINE AT 100ML/HR. PT IS CONTINUE ON CONSISTENT CARBOHYDRATE DIET, SHE CONSUMED DINNER 100% OF FOOD PREPARED. DAUGHTER, OSWALDO, IS AT BEDSIDE. CONTINUE MONITORING.
--- NOTE | 2022-04-19 19:10 | NUR ---
ENDORSED PT TO NIGHTSHIFT NURSE KISHORE FOR CONTINUITY OF CARE. PT IN STABLE CONDITION.
[2022-04-19 20:00] VITALS: BP 139/52
--- NOTE | 2022-04-19 21:57 | NUR ---
BLOOD SUGAR CHECK = 129, NO SLIDING SCALE COVERAGE. NO INSULIN NEEDED. PT AWAKE AND ALERT X 4.
--- NOTE | 2022-04-19 22:21 | NUR ---
ASSESSED PT, PT DENIES OF PAIN, CHEST PAIN, HEADACHE OR DIZZINESS. PT REPLIED "ALL PEÑA".
[2022-04-20 04:00] VITALS: BP 143/71
[2022-04-20] MEDS: NACL 0.9% 1,000 ML IV SCH ×2 (05:30→12:13)
[2022-04-20] MEDS: BLOOD GLUCOSE MONITORING 1 DEV DEV FS SCH ×2 (06:51→12:24)
[2022-04-20 06:52] LABS: BASOPHILS % (AUTO) 0.7 % (0.0-2.0); EOSINOPHILS # (AUTO) 0.2 K/uL (0-0.4); EOSINOPHILS % (AUTO) 2.8 % (0.0-4.0); HEMATOCRIT 28.4 % (36-48); HEMOGLOBIN 9.7 g/dL (12.0-16.0); LYMPHOCYTES # (AUTO) 1.5 K/uL (2.5-16.5); LYMPHOCYTES % (AUTO) 24.1 % (20.5-51.1); MEAN CORPUSCULAR HEMOGLOBIN 29 pg (27-31); MEAN CORPUSCULAR HGB CONC 34 g/dL (33-37); MEAN CORPUSCULAR VOLUME 85.3 fL (80-94); MONOCYTES # (AUTO) 0.6 K/uL (0.8-1.0); MONOCYTES % (AUTO) 9.3 % (1.7-9.3); NEUTROPHILS % (AUTO) 63.1 % (42.2-75.2); PLATELET COUNT (AUTO) 399 K/uL (140-450); RED BLOOD CELL COUNT(AUTO) 3.33 MIL/uL (4.20-5.40); RED CELL DISTRIBUTION WIDTH 12.5 % (11.6-13.7); WHITE BLOOD COUNT (AUTO) 6.3 K/uL (4.8-10.8)
[2022-04-20] MEDS: glipiZIDE 5 MG TAB PO SCH (06:59)
[2022-04-20 07:10] LABS: ANION GAP 11.9 (8-16); CARBON DIOXIDE 25.9 mmol/L (21-32); CREATININE 1.2 mg/dL (0.6-1.3); POTASSIUM 4.8 mmol/L (3.5-5.1)
--- NOTE | 2022-04-20 07:10 | NUR ---
RECEIVED REPORT FROM NIGHTSHIFT NURSE KISHORE FOR CONTINUITY OF CARE. PT IS CURRENTLY SLEEPING, A/OX4 AND PERSIAN SPEAKING. PT IS BREATHING EVEN, REGULAR AND UNLABORED ON ROOM AIR. PT IS CONTINENT OF THE BOWELS AND BLADDER, ANS IS ABLE TO AMBULATE WITHOUT ASSISTANCE. PT SKIN INTACT, CURRENTLY DENIES ANY PAIN AT THIS TIME. PT IN STABLE CONDITION.
[2022-04-20 08:00] VITALS: BP 153/65
[2022-04-20] MEDS: MEROPENEM 1,000 MG in NACL 0.9% 50 ML IV SCH (08:41)
--- NOTE | 2022-04-20 08:50 | NUR ---
DR. GABRIEL IN TO SEE PT. NEW ORDER FOR DISCHARGE TO HOME AFTER ANTIBIOTIC MEDICATIONS ARE ARRANGED VIA DANCE PROFESSOR AND CASE MANAGEMENT.
[2022-04-20] MEDS ORDERED: ERTA1VIA2 IM ×2 (09:20→10:43)
== END 2022-04-20 16:10 | disposition home or self-care (01) | DRG 720 ==
LOC: MED 09:03 → INTOOBSV 17:48 → MMU 17:48 → MTU 04-18 06:54 → OBSVTOIN 04-18 11:19
PROVIDERS: ADMIT Family Medicine; ATTEND Family Medicine
DX: A41.9 Sepsis, unspecified organism (principal); N17.0 Acute kidney failure with tubular necrosis; E43 Unspecified severe protein-calorie malnutrition; I31.39 Other pericardial effusion (noninflammatory); N10 Acute pyelonephritis; E87.1 Hypo-osmolality and hyponatremia; D64.9 Anemia, unspecified; E11.9 Type 2 diabetes mellitus without complications; B96.20 Unspecified Escherichia coli [E. coli] as the cause of diseases classified elsewhere; Z16.12 Extended spectrum beta lactamase (ESBL) resistance; E04.1 Nontoxic single thyroid nodule; I10 Essential (primary) hypertension; Z20.822 Contact with and (suspected) exposure to COVID-19; K80.20 Calculus of gallbladder without cholecystitis without obstruction; I25.10 Atherosclerotic heart disease of native coronary artery without angina pectoris; K44.9 Diaphragmatic hernia without obstruction or gangrene; J98.4 Other disorders of lung; Z68.25 Body mass index [BMI] 25.0-25.9, adult
CPT/HCPCS: 96361; 96365; 96375; 99285; G0378; 36415; 71045; 71275; 80048; 80053; 81001; 82948; 83605; 83735; 83880; 84484; 85025; 87040; 87081; 87086; 93005; J0696; J2185; J2405; J3475; J7030; J7060; Q0092; Q9967

== ENCOUNTER 2022-10-02 11:42 | Emergency (ER) | payer MEDICAID ==
[~2022-10-02] VITALS: Ht 160 cm; Wt 69.4 kg
[~2022-10-02 11:42] MED LIST changes: +ERTA1VIA2 IM; -MERO1VIA15 IV; -NITR100C7 PO; -[UNRECOGNIZED DRUG - OTHER] IV
[2022-10-02 11:43] VITALS: BP 125/69
--- NOTE | 2022-10-02 11:55 | NUR ---
TRIAGE BLOOD GLUCOES =230
--- NOTE | 2022-10-02 11:56 | NUR ---
patient ambulated to bed 6
--- NOTE | 2022-10-02 12:06 | NUR ---
Dr. Bush evaluating patient at bedside.
[2022-10-02] MEDS ORDERED: SIMV-372 PO (12:30)
--- NOTE | 2022-10-02 12:32 | NUR ---
med rec complete
--- NOTE | 2022-10-02 12:38 | NUR ---
57 y/o female bib self with c/o dizziness x 1 week and wound to right lateral ankle. Patient states wound started with a fluid filled blister that she has been treating at home. Wound is open and is noted to be red from medication that patient is cleaning with. No active bleeding noted. Denies any fever, chills or SOB. Medical History: DM, HTN NKDA
--- NOTE | 2022-10-02 12:44 | NUR ---
X-Ray at bedside.
[2022-10-02 13:11] LABS: ALBUMIN 2.9 g/dL (3.4-5.0); ANION GAP 14.4 (8-16); ASPARTATE AMINOTRANSFERASE 14 U/L (15-37); CARBON DIOXIDE 26.7 mmol/L (21-32); CHLORIDE 104 mmol/L (98-107); CREATININE 1.4 mg/dL (0.6-1.3); GFR ARICAN-AMERICAN 50 mL/min (>90); GLUCOSE 234 mg/dL (74-106); POTASSIUM 5.1 mmol/L (3.5-5.1); SODIUM SERUM 140 mmol/L (136-145); TOTAL BILIRUBIN 0.2 mg/dL (0.0-1.0); UREA NITROGEN, BLOOD 21 mg/dL (7-18)
[2022-10-02 13:16] LABS: BASOPHILS % (AUTO) 0.7 % (0.0-2.0); EOSINOPHILS # (AUTO) 0.1 K/uL (0-0.4); EOSINOPHILS % (AUTO) 1.9 % (0.0-4.0); HEMATOCRIT 33.6 % (36-48); HEMOGLOBIN 11.4 g/dL (12.0-16.0); LYMPHOCYTES # (AUTO) 2.1 K/uL (2.5-16.5); LYMPHOCYTES % (AUTO) 29.9 % (20.5-51.1); MEAN CORPUSCULAR HEMOGLOBIN 29 pg (27-31); MEAN CORPUSCULAR HGB CONC 34 g/dL (33-37); MEAN CORPUSCULAR VOLUME 86.1 fL (80-94); MONOCYTES # (AUTO) 0.5 K/uL (0.8-1.0); MONOCYTES % (AUTO) 7.2 % (1.7-9.3); NEUTROPHILS # (AUTO) 4.3 K/uL (1.8-7.7); NEUTROPHILS % (AUTO) 60.3 % (42.2-75.2); PLATELET COUNT (AUTO) 293 K/uL (140-450); RED CELL DISTRIBUTION WIDTH 14.2 % (11.6-13.7); WHITE BLOOD COUNT (AUTO) 7.2 K/uL (4.8-10.8)
[2022-10-02] MEDS ORDERED: BACITRACIN OINT 500 UNITS/GM PKT TP ONE (13:30)
[2022-10-02] MEDS ORDERED: NACL 0.9% 1,000 ML IV ONE (13:35)
[2022-10-02] MEDS ORDERED: AMOX-1230 PO (13:39)
[2022-10-02] MEDS ORDERED: CEPH-588 PO (13:41)
--- NOTE | 2022-10-02 14:50 | NUR ---
PATIENT AMBULATED TO RESTROOM.
[2022-10-02 16:02] VITALS: BP 150/78
--- NOTE | 2022-10-02 16:02 | NUR ---
Patient discharged with v/s stable. Written and verbal after care instructions given. Patient alert, oriented and verbalized understanding of instructions. Ambulatory with steady gait. All questions addressed prior to discharge. ID band removed. Patient advised to follow up with PMD. Rx of KEFLEX given. Opportunity to ask questions provided and answered.
--- NOTE | 2022-10-02 16:12 | NUR ---
The patient's care was reviewed and supervised by Mary Diaz, RN, RN.
--- NOTE | 2022-10-04 18:12 | NUR ---
LATE ENTRY. RECEIVED POSITIVE AEROBIC CULTURE. FORM GIVEN TO DR PEREIRA. DR PEREIRA CALLED AND SPOKE WITH PT AND DAUGHTER DIRECTLY TO RETURN FOR RE-EVALUATION. FORM PLACED IN BINDER
== END 2022-10-02 16:02 | disposition home or self-care (01) ==
LOC: MED 11:42
DX: E11.621 Type 2 diabetes mellitus with foot ulcer (principal); R42 Dizziness and giddiness; I10 Essential (primary) hypertension; Z79.4 Long term (current) use of insulin; Z79.899 Other long term (current) drug therapy; Z98.890 Other specified postprocedural states
CPT/HCPCS: 36415; 71045; 73610; 80053; 82948; 84484; 85025; 87070; 87075; 87205; 93005; 96360; 99285; J7030; Q0092